=== PATIENT | female | born 1965 | race Native Hawaiian/Other Pacific Islander ===

== ENCOUNTER → 2021-02-01 08:36 | Outpatient (BNVA) | payer OTHER, SELFPAY | PROVIDERS: PCP Internal Medicine; Visit Provider Anesthesiology | DX: M79.609 Pain in unspecified limb (principal); G54.6 Phantom limb syndrome with pain; T87.89 Other complications of amputation stump; B19.20 Unspecified viral hepatitis C without hepatic coma; J44.9 Chronic obstructive pulmonary disease, unspecified; Z79.899 Other long term (current) drug therapy | CPT/HCPCS: 99202 ==

== ENCOUNTER → 2023-02-13 13:05 | Outpatient (BNVA) | payer OTHER, SELFPAY | PROVIDERS: PCP Internal Medicine; Visit Provider Physician Assistant | DX: G56.02 Carpal tunnel syndrome, left upper limb (principal); R29.6 Repeated falls; Z89.619 Acquired absence of unspecified leg above knee | CPT/HCPCS: 99212 ==

== ENCOUNTER 2023-04-08 14:36 | Outpatient (REF) | payer OTHER, SELFPAY ==
--- NOTE | ~2023-04-08 | XR_ITS ---
EXAMINATION: XR CERVICAL SPINE CLINICAL INFORMATION: Cervical radiculopathy. COMPARISON: None available. TECHNIQUE: Frontal and lateral (neutral, flexion and extension) views of the cervical spine were obtained. FINDINGS: Vertebral body heights are normal. There is significant reversal of the normal lordotic curvature. There is well-maintained alignment status-post C3-C4 anterior fusion and discectomy, with intact anterior fixator plate, fixator screws and disc spacers. No hardware failure or definite loosening is seen. The anterior fixator plate is not applied flush to the anterior margins of the C3 and C4 vertebral bodies; this could be compared with outside intraoperative imaging, if available. The C4-C5 disc space is well-maintained. More caudal disc spaces are poorly visualized. No acute fracture or spondylolisthesis is seen. There is no instability with flexion or extension. The posterior elements are intact. This multi-level cervical facet arthropathy. The dens is intact. No prevertebral soft tissue swelling or gas is seen. XR/XR cervical spine 4V IMPRESSION: 1. There is well-maintained alignment status-post C3-C4 anterior discectomy and fusion. No definite hardware failure or loosening is seen. 2. There is reversal of the normal lordotic curvature, which can be associated with muscle spasm. 3. No instability with flexion or extension. 4. There is multi-level cervical facet arthropathy.
== END 2023-04-08 14:37 | disposition home or self-care (01) ==
LOC: HO.HOSX 14:36
PROVIDERS: PCP Internal Medicine; Visit Provider Physician Assistant
DX: M54.12 Radiculopathy, cervical region (principal)
CPT/HCPCS: 72050; 99212

== ENCOUNTER 2023-07-16 17:48 | Outpatient (REF) | payer OTHER, SELFPAY ==
--- NOTE | ~2023-07-16 | MR_ITS ---
EXAMINATION: MR CERVICAL SPINE WITHOUT CONTRAST CLINICAL INFORMATION: Radiculopathy, severe bilateral arm pain COMPARISON: None TECHNIQUE: MRI of the cervical spine was obtained using routine sequences without contrast. Please note the patient was claustrophobic and terminated the examination prematurely prior to performing the axial GRE sequence FINDINGS: Motion degraded incomplete examination without axial GRE sequence obtained. Postsurgical changes following C3-C4 ACDF. Nondiagnostic assessment of the hardware would be better evaluated on CT. The craniocervical junction is intact. Reversal of the normal cervical lordosis. Slight anterolisthesis at C3-C4 and trace retrolisthesis at C5-C6 and C6-C7. Chronic T3, T4, and possibly T5 upper endplate compression fractures with minimal height loss. Cervical vertebral body heights are maintained. Diffuse disc desiccation with severe C5-C6 greater than C6-C7 disc height loss. Prominent type I Modic endplate changes at C5-C6 fluid signal intensity of the disc space. There are multilevel degenerative changes with level by level detail as follows: C2-C3: Bilateral facet arthrosis. No spinal canal or right neural foraminal stenosis. Minimal left neural foraminal narrowing. C3-C4: ACDF. Posterior disc uncovering, bilateral uncovertebral joint hypertrophy and advanced left greater than right facet arthrosis with ligamentum flavum thickening. No spinal canal stenosis. Severe bilateral neural foraminal stenosis. C4-C5: Disc osteophyte complex with bilateral uncovertebral joint hypertrophy and bilateral facet arthrosis, more pronounced and severe on the left. Mild spinal canal narrowing with encroachment upon the ventral cord. Severe left and small to moderate right neural foraminal stenosis. C5-C6: 3 mm rounded zoomed discal cyst along the right ventral margin of the disc space (image 5, series 4). Disc osteophyte complex with broad-based right paracentral disc protrusion, bilateral uncovertebral joint hypertrophy and advanced right greater than left facet arthrosis with ligamentum flavum thickening. Partially imaged marrow edema of the right facet joint. 3 mm synovial cyst along the anterior margin of the right facet joint projecting into the right neural foramen. Moderate spinal canal stenosis with cord impingement and ventral cord flattening. Severe bilateral neural foraminal stenosis. C6-C7: Disc osteophyte complex with bilateral uncovertebral joint hypertrophy and bilateral facet arthrosis with ligamentum flavum thickening. No spinal canal stenosis. Severe right and at least moderate left neural foraminal stenosis C7-T1: Small disc osteophyte complex with bilateral uncovertebral joint hypertrophy and bilateral facet arthrosis. No spinal canal stenosis. Moderate to severe right and mild left neural foraminal stenosis. Significant motion artifact precludes assessment for cord signal abnormality however definite cord signal abnormality is seen. No epidural fluid collection, mass, or hematoma. Asymmetric atrophy of the right scalene musculature, particularly of the right anterior scalene muscle. The right levator scapulae and probably also right trapezius muscles are likewise decreased in bulk compared to the contralateral left side. The flow voids of the major cervical vessels are maintained. Retropharyngeal course of the right internal carotid artery. The visualized intracranial structures are normal. Incompletely characterized apparent 1.4 cm opacity within the right upper lobe for which further evaluation with chest CT is advised. MR/MR cervical spine wo con IMPRESSION: Motion degraded incomplete examination without axial GRE sequence obtained. 1. Postsurgical changes following C3-C4 ACDF. Nondiagnostic assessment of the hardware would be better evaluated on CT. 2. Advanced multilevel cervical spondylosis as described, worst at C5-C6 where there is moderate spinal canal stenosis, cord impingement, and ventral cord flattening. Multilevel severe bilateral neural foraminal stenosis. Significant motion artifact precludes assessment for cord signal abnormality however definite cord signal abnormality is seen. 3. Asymmetric atrophy of the right scalene musculature, particularly of the right anterior scalene muscle. The right levator scapulae and probably also right trapezius muscles are likewise decreased in bulk compared to the contralateral left side. 4. Incompletely characterized apparent 1.4 cm opacity within the right upper lobe for which further evaluation with chest CT is advised. Findings to be called to the ordering clinician by a [facility] Screw Machine Operator [employer] Type.
== END 2023-07-16 17:49 | disposition home or self-care (01) ==
LOC: HO.MRI 17:48
PROVIDERS: PCP Internal Medicine; Visit Provider Physician Assistant
DX: M54.12 Radiculopathy, cervical region (principal)
CPT/HCPCS: 72141

== ENCOUNTER 2023-07-25 11:12 | Outpatient (AMB) | payer OTHER, SELFPAY ==
--- NOTE | 2023-07-25 11:30 | A.SPINEOV_ITS ---
Intake Intake Visit Reasons: discuss MRI results Intake Note: Ms. Hodge is here today to discuss the results of her MRI. Gis Geographer Required: No Allergies Iodinated Contrast Media [IV CONTRAST] Allergy (Severe, Verified 02/13/23 13:27) SWELLING shrimp [SHRIMP] Allergy (Severe, Verified 02/13/23 13:27) SWELLING metformin [METFORMIN] Allergy (Intermediate, Verified 02/13/23 13:27) ITCHING fentanyl Allergy (Unknown, Verified 02/13/23 13:27) unknown Assessment & Plan Assessment & Plan (1) Cervical radiculopathy: Comment: Brenda is a 57-year-old female comes in today as a follow-up patient after having her MRI completed. She has a previous surgical history of C3-C4 ACDF, and left sided carpal tunnel release. She reports that her upper extremity symptoms have continued to worsen, and sites paresthesias in her upper arm as well as her forearms bilaterally. She also endorses moderate to severe neck pain which has been ongoing for the last few months and is continue to worsen. She states that all of her fingers are not affected by the numbness/tingling, but continues to endorse pain that goes up and down her arms bilaterally. She states that she has had difficulty sleeping, and completing her ADLs. Mobility / function: Patient ambulates well, can rise from a seated position without difficulty. Sensation: Grossly intact. CN: II-XII grossly intact. Strength Testing Upper Extremities: - Deltoid 5/5 right 5/5 left - Biceps 5/5 right 5/5 left - Triceps 5/5 right 5/5 left - Wrist Ext 5/5 right 5/5 left - Wrist Flex 5/5 right 4/5 left - Hand home theater installer 5/5 right 4/5 left - Interossei 5/5 right 4/5 left Strength Testing Lower Extremities: - Hip flexion 5/5 right 5/5 left - Knee extension Patient has R side BTK amputation 5/5 left - Dorsiflexion Patient has R side BTK amputation 5/5 left - Plantar flex Patient has R side BTK amputation 5/5 left - EHL Patient has R side BTK amputation 5/5 left Reflexes: - Biceps Right - 2+ Left - 3+ - Triceps Right - 2+ Left - 3+ - Patellar Patient has R side BTK amputation Left - 3+ - Achilles Patient has R side BTK amputation Left - 3+ - Plantar Patient has R side BTK amputation Left - 3+ (+) L sided Valderrama?s sign On MRI review she is noted to have significant collapse of disc height below the level of her ACDF, predominantly affecting the disc space between C5-6. The report suggests severe stenosis however we can see CSF signal around the cord at this level so it is more likely moderate. There is also hyperintensity in the disk at C5-6 with possible cyst arising anteriorly. We compared this to MRI done one year ago and she has significantly collapsed this disk in the time frame, and has developed a worsening kyphotic deformity. We ordered repeat flexion / extension X-rays to better evaluate this issue, and noted a significantly radio-opaque area just below the C5 vertebrae and significant kyphotic deformity at C5-6 not seen on xrays in April 2023 at [facility]. This is concerning, as it seems too accelerated for a simple degenerative disk. We will order CT scan to further elucidate another etiology. She does have known history of osteomyelitis. Of note her MRI read states that she has an incompletely characterized apparent 1.4 cm opacity within the right upper lobe. She has know previous low dose CT scans with lower lobe nodules done at [facility] but none mention upper lobe mass, so we will forward our note to her pulmonology team that manages this. She was strongly advised to follow up with this with her outpatient provider that we observed has been tracking her with serial CT scans. This patient was evaluated with KVNG Jaquez who is in agreement with this plan. Case will be discussed with Dr. Lloyd. CT findings will be reviewed with Dr. Lloyd. Total amount of time spent in this visit was 60 minutes in discussion of symptoms, MRI cervical spine, XR cervical spine imaging results and subsequent plan of care. Peter Lloyd MD, PhD [facility] Code(s): M54.12 - Radiculopathy, cervical region Plan Moderate spinal canal stenosis, cord impingement, and ventral cord flattening. Orders: Orders XR cervical spine 4V Today M54.12 - Radiculopathy, cervical region Coding Level of Care Code Est Pt Level 5 (80733) Diagnoses Cervical radiculopathy M54.12
== END 2023-07-25 12:02 | disposition home or self-care (01) ==
PROVIDERS: PCP Internal Medicine; Visit Provider Physician Assistant
DX: M54.12 Radiculopathy, cervical region (principal)
CPT/HCPCS: 99215

== ENCOUNTER 2023-07-25 11:12 | Outpatient (REF) | payer OTHER, SELFPAY ==
--- NOTE | ~2023-07-25 | XR_ITS ---
EXAMINATION: XR CERVICAL SPINE CLINICAL INFORMATION: Radiculopathy cervical region COMPARISON: 07/16/2023 MR cervical spine. 04/08/2023 x-ray cervical spine. TECHNIQUE: 4 views of the cervical spine, inclusive of flexion and extension views. FINDINGS: Redemonstration of C3-C4 anterior fusion and discectomy with anterior fixator plate, screws and disc spacers. Hardware appears intact. As previously noted the anterior fixator plate is not quite flush to the anterior margins of the C3 and C4 vertebral body bodies. Multilevel cervical facet arthropathy. Reversal of the normal cervical lordosis. 3.5 mm anterolisthesis of C3 on C4. Trace retrolisthesis of C5 on C6 and C6-C7. Severe degenerative with loss of disc space height and hypertrophic change at C5-C6. [id number]-vbbdaa loss of disc space height at C6-C7. Moderate degenerative changes at C4-C5. Visualization of C6 and C7 limited due to overlying soft tissues. XR/XR cervical spine 4V IMPRESSION: 1. Status post ACDF at C3-C4. Hardware appears intact. 2. Mild 3.5 mm anterolisthesis of C3 on C4. 3. Advanced multilevel cervical spondylosis, most notable at C5-C6.
== END 2023-07-25 11:13 | disposition home or self-care (01) ==
LOC: HO.HOSX 11:12
PROVIDERS: PCP Internal Medicine; Visit Provider Physician Assistant
DX: M54.12 Radiculopathy, cervical region (principal); Z71.2 Person consulting for explanation of examination or test findings
CPT/HCPCS: 72050; 99212

== ENCOUNTER 2023-08-15 07:19 | Outpatient (REF) | payer OTHER, SELFPAY ==
--- NOTE | ~2023-08-15 | CT_ITS ---
EXAMINATION: CT CERVICAL SPINE WITHOUT CONTRAST CLINICAL INFORMATION: 57-year-old with radiculopathy, cervical region. COMPARISON: 07/16/2023 MRI TECHNIQUE: Volumetric CT imaging of the cervical spine was done with multiplanar reformatted reconstructions. This CT examination was performed using dose optimization techniques as appropriate, variously including the following: *Automated exposure control *Adjustment of mA and/or kV according to patient size (this includes techniques or standardized protocols for targeted exams where dose is matched to indication/reason for exam; i.e. extremities or head) *Use of iterative reconstruction technique DLP: 327 mGy-cm FINDINGS: Redemonstrated is 2.5 mm of anterolisthesis at C3-C4 similar to previous MRI, with lordotic reversal centered at C4-C5 unchanged in appearance. There is slight retrolisthesis at C5-C6. There is partially imaged cervicothoracic levocurvature, convex to the left in the upper thoracic spine which is incompletely imaged. Vertebral body heights are well-maintained. No acute fractures. HARDWARE: Anterior plate and screw fixation hardware noted at C3-C4, with no evidence for hardware fracture or loosening. Interbody spacer device in place at the C3-C4 level as well with centrally bridging bone noted at this level. Limited assessment of the included intracranial soft tissue structures demonstrates no acute process. C2-C3: No disc herniation or canal stenosis. No significant DJD or neural foraminal stenosis. C3-C4: Broad-based posterior disc osteophyte complex with mild unroofing of the posterior disc margin, with flattening of the ventral dural sac similar to the previous MRI. There is uncovertebral arthrosis bilaterally, with the uncovertebral joints and facet joints not yet fused with facet arthropathy, left more than right and mild central canal narrowing. There is severe left-sided and moderate right-sided neural foraminal stenosis. C4-C5: Soft tissues in the canal and neural foramina are partially obscured by metallic artifact. There is no bony canal stenosis. There is uncinate process spurring bilaterally and there is moderate left-sided facet arthropathy with hypertrophic changes and ankylosis of the left facet joint with [id number] right and moderate to severe left-sided neural foraminal stenosis. C5-C6: Severe disc space height loss at this level with partial ankylosis of the intervertebral disc space with degenerative endplate sclerosis. There is broad-based posterior disc osteophyte complex with encroachment on the ventral thecal sac asymmetric to the right. Soft tissues in the canal are partially obscured by artifact. There is bilateral facet arthropathy right more than left and uncovertebral arthrosis bilaterally with severe bilateral neural foraminal stenosis. C6-C7: Moderate to severe disc space height loss noted, with spondylosis, bilateral uncovertebral arthrosis, right more than left and moderate bilateral facet arthropathy similar to previous MRI. Soft tissues in the canal are partially obscured by artifact. Broad-based disc osteophyte complex noted with encroachment on the ventral dural sac without significant spinal canal stenosis. There is severe right-sided and moderate to severe left-sided neural foraminal stenosis. C7-T1: Soft tissues in the canal are partially obscured by artifact. No definite spinal canal stenosis and no large disc herniations or posterior disc osteophyte complexes. There is bilateral facet arthropathy, with moderate right-sided and mild left-sided foraminal stenosis. T1-T2: No bony canal or neural foraminal stenosis. Minor facet arthrosis noted bilaterally. The visualized lung apices demonstrate probable fibrotic changes bilaterally, right more than left and a small calcification left lung apex. The visualized extraspinal soft tissue structures are not well evaluated due to streak artifact and positional factors. CT/CT cervical spine wo IV con IMPRESSION: 1. Status post anterior instrumented fusion at C3-C4 with partial ankylosis of the intervertebral disc space at this level, with no evidence for hardware fracture or loosening. Centrally fused bridging bone is noted at this level. 2. Mild anterolisthesis at C3-C4 and slight retrolisthesis at C5-C6 with a partially imaged cervicothoracic levocurvature. 3. Multilevel discogenic degenerative change, spondylosis and DJD as described above, with partial ankylosis of the C5-C6 intervertebral disc space. Overall similar appearance to previous MRI. 4. Multilevel bilateral DJD, with multilevel bilateral bony neural foraminal stenosis, most apparent on the left at C3-C4 and on the left at C4-C5 and bilaterally at C5-C6 and on the right at C6-C7. 5. Probable fibrotic changes at both lung apices but difficult to exclude neoplastic disease at the right lung apex. Recommend CT of the chest with contrast for further assessment.
== END 2023-08-15 07:20 | disposition home or self-care (01) ==
LOC: HO.CT 07:19
PROVIDERS: PCP Internal Medicine; Visit Provider Physician Assistant
DX: M54.12 Radiculopathy, cervical region (principal)
CPT/HCPCS: 72125

== ENCOUNTER 2023-09-01 13:23 | Outpatient (AMB) | payer OTHER, SELFPAY ==
--- NOTE | 2023-09-01 13:31 | MHC.OFFVIS ---
Intake Vital Signs 09/01/23 13:48 Height 5 ft Weight 117 lb BMI 22.8 BP 147/93 H Blood Pressure Location Lt brachial Position Sitting Pulse 116 H Pulse Source Pulse Oximeter Temp 98.7 F Temp Source Oral Pulse Oximetry (%) 95 Intake Visit Reasons: Ref.Wiley Slaterron,Chronic Osteomyelitis Allergies Iodinated Contrast Media [IV CONTRAST] Allergy (Severe, Verified 09/01/23 13:48) SWELLING shrimp [SHRIMP] Allergy (Severe, Verified 09/01/23 13:48) SWELLING metformin [METFORMIN] Allergy (Intermediate, Verified 09/01/23 13:48) ITCHING fentanyl Allergy (Unknown, Verified 09/01/23 13:48) unknown HPI Ref.Wiley Slaterron,Chronic Osteomyelitis HPI Details She was referred due to abnormal MRI ?infection She has cervical disk disease and is seeing Neurosurgery. There is reported more collapse in disk below level of disk disease in MRI than would be expected in a year according to patient. She has had C3/C4 cord compression and has had surgery done [facility] [place] 10/2021 due to C3-C4 myelopathy according to patient. I did review both [facility] and [facility] EMRs. There is no blood culture positive except for diptheroids reported at [facility] 10/22,contaminant single. There is no surgical biopsy or culture reporting organisms that I can find. She reports no fever,bacteremia or sepsis from any cervical source. She says she feels same she usually does with no leg or arm weakness changes. [facility] Medical History COPD, severe Painful amputation stump Phantom limb pain Post-traumatic stress disorder, unspecified Anxiety disorder, unspecified H/O tuberculosis Low back pain Bipolar disorder, unspecified Chronic rhinitis Vitamin D deficiency, unspecified Chronic obstructive pulmonary disease, unspecified Prediabetes Asymptomatic cholelithiasis Other specified abnormal findings of blood chemistry Acquired absence of right leg below knee Pulmonary nodules Tobacco use disorder, mild, abuse Hepatitis C Review of Systems Const All systems reviewed & are unremarkable except as noted in HPI and below Physical Exam Vital Signs: Last Vital Signs Temp 98.7 F 09/01/23 13:48 Pulse 116 H 09/01/23 13:48 BP 147/93 H 09/01/23 13:48 Pulse Ox 95 09/01/23 13:48 BMI result Body Mass Index 22.8 Const General: cooperative Orientation/consciousness: patient oriented x3 HEENT Head: Yes normal to inspection Mouth: Normal oral and palatal mucosa present Eyes General: appearance normal, both eyes and all related structures Pupils: Equal, round and reactive pupils present Resp Effort & Inspection: normal respiratory effort Cardio Rate: regular rate Rhythm: regular rhythm GI Palpation (GI): Soft to palpation and nontender General: Yes no CVA tenderness Back/Spine/Pelvis Back: no CVA tenderness Skin General skin exam: no rashes or lesions noted Neuro General: patient oriented x3 Cranial nerves: Yes CN's II-XII intact bilaterally and Yes Equal, round and reactive pupils present Extrem Other: missing RLE chronic neck stiffness Psych Appearance: grossly normal Assessment & Plan Assessment & Plan (1) Cervical radiculopathy: Comment: Brenda is a 57-year-old female comes in today as a follow-up patient after having her MRI completed. She has a previous surgical history of C3-C4 ACDF, and left sided carpal tunnel release. She reports that her upper extremity symptoms have continued to worsen, and sites paresthesias in her upper arm as well as her forearms bilaterally. She also endorses moderate to severe neck pain which has been ongoing for the last few months and is continue to worsen. She states that all of her fingers are not affected by the numbness/tingling, but continues to endorse pain that goes up and down her arms bilaterally. She states that she has had difficulty sleeping, and completing her ADLs. Mobility / function: Patient ambulates well, can rise from a seated position without difficulty. Sensation: Grossly intact. CN: II-XII grossly intact. Strength Testing Upper Extremities: - Deltoid 5/5 right 5/5 left - Biceps 5/5 right 5/5 left - Triceps 5/5 right 5/5 left - Wrist Ext 5/5 right 5/5 left - Wrist Flex 5/5 right 4/5 left - Hand scarrer 5/5 right 4/5 left - Interossei 5/5 right 4/5 left Strength Testing Lower Extremities: - Hip flexion 5/5 right 5/5 left - Knee extension Patient has R side BTK amputation 5/5 left - Dorsiflexion Patient has R side BTK amputation 5/5 left - Plantar flex Patient has R side BTK amputation 5/5 left - EHL Patient has R side BTK amputation 5/5 left Reflexes: - Biceps Right - 2+ Left - 3+ - Triceps Right - 2+ Left - 3+ - Patellar Patient has R side BTK amputation Left - 3+ - Achilles Patient has R side BTK amputation Left - 3+ - Plantar Patient has R side BTK amputation Left - 3+ (+) L sided Valderrama?s sign On MRI review she is noted to have significant collapse of disc height below the level of her ACDF, predominantly affecting the disc space between C5-6. The report suggests severe stenosis however we can see CSF signal around the cord at this level so it is more likely moderate. There is also hyperintensity in the disk at C5-6 with possible cyst arising anteriorly. We compared this to MRI done one year ago and she has significantly collapsed this disk in the time frame, and has developed a worsening kyphotic deformity. We ordered repeat flexion / extension X-rays to better evaluate this issue, and noted a significantly radio-opaque area just below the C5 vertebrae and significant kyphotic deformity at C5-6 not seen on xrays in April 2023 at [place]. This is concerning, as it seems too accelerated for a simple degenerative disk. We will order CT scan to further elucidate another etiology. She does have known history of osteomyelitis. Of note her MRI read states that she has an incompletely characterized apparent 1.4 cm opacity within the right upper lobe. She has know previous low dose CT scans with lower lobe nodules done at [facility] but none mention upper lobe mass, so we will forward our note to her pulmonology team that manages this. She was strongly advised to follow up with this with her outpatient provider that we observed has been tracking her with serial CT scans. This patient was evaluated with KVNG Jaquez who is in agreement with this plan. Case will be discussed with Dr. Lloyd. CT findings will be reviewed with Dr. Lloyd. Total amount of time spent in this visit was 60 minutes in discussion of symptoms, MRI cervical spine, XR cervical spine imaging results and subsequent plan of care. Peter Lloyd MD, PhD [facility] Code(s): M54.12 - Radiculopathy, cervical region Plan She has neck pain chronically with no changes. I also do not see any fever or leukocytosis or chronic elevated ESR. I dont see any evidence of prior acute osteomyelitis so cant revenue director chronic osteomyelitis There is h/o TB reported although patient doesnt know much about it ? Grove disease. Maybe this is just disks deteriorating due to mechanical reasons quickly. Would not treat any infection if any until know more about what kind ?staph ?TB Biopsy and culture area C spine if desired and will treat accordingly. Alternatively, follow and wait and recheck for symptoms. No appointment made but will see after any definitive testing done. Coding Level of Care Code New Pt Level 3 (75651) Diagnoses Cervical radiculopathy M54.12
[2023-09-01 13:48] VITALS: BP 147/93; PULSE 116; TEMP 37.1; O2SAT 95; BMI 22.8
== END 2023-09-01 14:23 | disposition home or self-care (01) ==
PROVIDERS: PCP Internal Medicine; Visit Provider Internal Medicine
DX: M54.12 Radiculopathy, cervical region (principal)
CPT/HCPCS: 99203

== ENCOUNTER → 2023-09-01 13:23 | Outpatient (BNVA) | payer OTHER, SELFPAY | PROVIDERS: PCP Internal Medicine; Visit Provider Internal Medicine | DX: M54.12 Radiculopathy, cervical region (principal) | CPT/HCPCS: 99202 ==

== ENCOUNTER 2023-11-27 10:28 | Outpatient (REF) | payer OTHER, SELFPAY ==
--- NOTE | ~2023-11-27 | MR_ITS ---
MR CERVICAL SPINE WITHOUT IV CONTRAST CLINICAL INFORMATION: Cervical region radiculopathy. COMPARISON: Cervical spine MRI 07/16/2023. Cervical spine CT 08/15/2023. TECHNIQUE: MRI of the cervical spine was obtained using routine sequences without contrast. FINDINGS: Redemonstrated postoperative changes following ACDF at C3-C4. The surgical hardware is not diagnostically assessed on MRI. There is stable anterior subluxation of C3 on C4 and there is stable retrosubluxation of C5 on C6 and C6 on C7. Similar severe disc volume loss at C5-C6 and C6-C7. There is bone marrow edema within the left C3-C4 facets that is most likely degenerative/inflammatory. No additional bone marrow edema. No acute fractures craniocervical junction is unremarkable. Cervical arterial flow voids are maintained. There are no significant extraspinal soft tissue findings. Nondiagnostic assessment for cord signal changes due to the degree of artifact. C2-C3: Disc contour is normal. Left-sided facet arthropathy. No central canal stenosis and no foraminal stenosis. C3-C4: ACDF changes. Anterior subluxation. Disc osteophyte and ligamentum flavum thickening mildly narrow the central canal. Advanced uncovertebral joint spurring and facet arthropathy result in stable appearing severe bilateral foraminal stenosis. Findings unchanged. C4-C5: Disc osteophyte and ligamentum flavum thickening result in worsening moderate central canal stenosis on the left side and flattening of the left cord. Uncovertebral joint spurring and facet arthropathy result in similar severe left-sided foraminal stenosis. C5-C6: Retrosubluxation. Disc osteophyte and ligamentum flavum thickening result in worsening moderate central canal stenosis and flattening of the cord. Uncovertebral joint spurring and facet arthropathy result in similar severe bilateral foraminal stenosis. C6-C7: Disc osteophyte and ligamentum flavum thickening mildly narrow the central canal. Uncovertebral joint spurring and facet arthropathy result in stable appearing severe right and moderate left foraminal stenosis. C7-T1: Disc osteophyte and ligamentum flavum thickening mildly narrow the central canal. There is mild foraminal encroachment bilaterally. MR/MR cervical spine wo con IMPRESSION: - At C3-C4, there are redemonstrated postoperative changes following ACDF. Stable anterior subluxation of C3 on C4 and advanced spondylitic changes result in persistent severe bilateral foraminal stenosis at this level. - At C4-C5, progressive spondylitic changes result in worsening moderate central canal stenosis on the left side and flattening of the left cord. Similar severe left-sided foraminal stenosis at this level. - At C5-C6, progressive spondylitic changes result in worsening moderate central canal stenosis and flattening of the cord. Similar severe bilateral foraminal stenosis at this level. - At C6-C7, multifactorial degenerative changes result in stable appearing severe right and moderate left foraminal stenosis. - There is bone marrow edema within the left C3-C4 facets that is most likely degenerative/inflammatory. - Nondiagnostic assessment for cord signal changes due to the degree of artifact. - Right scalene muscular atrophy again noted.
== END 2023-11-27 10:29 | disposition home or self-care (01) ==
LOC: HO.MRI 10:28
PROVIDERS: PCP Internal Medicine; Visit Provider Physician Assistant
DX: M54.12 Radiculopathy, cervical region (principal)
CPT/HCPCS: 72141

== ENCOUNTER 2025-06-06 11:26 | Outpatient (REF) | payer OTHER, SELFPAY ==
--- NOTE | 2025-06-06 | EMG_ITS ---
Please see the attached neurophysiology report MTDD
--- OUTSIDE RECORDS SUMMARY | 2025-06-06 12:20 | XMS_ITS | Encounter Summary ---
Author Organization [facility] Address [address] [place] [address] Care Team Providers Care Installers Mechanical Name Role Phone Leilani Donovan MD Primary Care Prov ider Reason for Visit * Reason Onset Date Comments Fitting for DME 05/02/2025 Encounter Details Date Type Department Care Team (Late st Contact Info) Description 05/02/2025 Telephone Adult Medicine - [place] [address] [place] [phone] Leilani Donovan MD [address] [place] [address] Fitting for DME Social History Tobacco Use Types Packs/Day Years Used Date Smoking Tobacco: Every Day Cigarettes Started: 11/03/1975 Smokeless Tobacco: Never Alcohol Use Standard Drinks/Week Comments No 0 (1 standard drink = 0.6 oz pur e alcohol) Interpersonal Safety Answer Date Record ed Physical Abuse 02/22/2025 Verbal Abuse 02/22/2025 Comments No Sex and Gender Information Value Date Recorded Sex Assigned at Female 01/21/2025 3:25 PM EDT Legal Sex Female 5:29 PM EST Gender Identity Female 01/21/2025 3:25 PM EDT Sexual Orientation Straight 01/21/2025 3: 25 PM EDT documented as of this encounter Progress Notes * Linda Ducati - 06/03/2025 3:22 PM EDT New order needs to be pended for a new scooter not repairs * Linda Pino - 06/03/2025 3:20 PM EDT Called patient and she does want a new scooter and not her current one to be repaired. * Linda Pino - 06/03/2025 3:03 PM EDT Faxed over to [facility] the signed order and the ov notes. Called [facility] to see if they received the fax. I spoke to Xin and she indicated that the patient called into their office today indicating that shedoes not want repairs to the scooter she wants a new one since it is over 5 years old. Per the insurance she is eligible for the new scooter. Since our order is for repairs the provider will need to do a new order for a new scooter. Will call the patient to explain what will need to be done. * Stephon Mercedes - 06/03/2025 12:30 PM EDT Pt calling to find out if someone can print out the script so she can bring it right over to [employer] [facility] [employer]. Pls advise. Pt call can be returned to [phone]. Thx. * Je Cordova - 06/02/2025 1:42 PM EDT PT CALLING ON THIS, PLS ADVISE * Hanane Westleysaqib - 05/23/2025 11:38 AM EDT Please refax - fax [phone] * Alexa Metz MA - 05/11/2025 12:24 PM EDT This message indicates that [facility] only received 2 pieces of paper, but on my end all the pages are listed on the confirmation. Refaxed to [employer] @ [phone] I called the pt and informed her that on my end, everything was received according to the confirmation, but I refaxed it. * Stephon Mercedes - 05/10/2025 3:38 PM EDT Pt calling again on status of this. Pls return call to [phone] once finished. Thx. * Je Cordova - 05/05/2025 2:41 PM EDT Patient calling back, states [employer] only got 2 pieces of paper. Patient would like Alexa to call her back when able too. Please advise * Alexa Metz MA - 05/03/2025 10:29 AM EDT This was done in another message. The form for scooter labor was faxed on 04/18/2025 with Tita's notes supporting the medical necessity. Re Faxed to [employer] T. [phone] F. [phone] * Hanane Woodruff - 05/02/2025 10:33 AM EDT DME REQUEST Name of Product: dme request Specific information about product scootet # Needed 1 Reason patient is asking for this supply? Unknown to bsr Have you received this supply before? If yes , when?: Yes. Have you discussed the need for this supply with a provider at a recent visit? If yes, with who andwhen? Yes. When completed: fax to [employer] Have you told the patient it will take 7-10 days for completion of this request? No request documented in this encounter Plan of Treatment Upcoming Encounters Date Type Department Care Team (Late st Contact Info) Description 06/17/2025 4:30 PM EDT Appointment [facility] CT Scan [address] [place] [phone] 07/15/2025 3:30 PM EDT Office Visit Adult Medicine [facility] [address] [place] [phone] Leilani Donovan MD [address] [place] [address] 08/19/2025 11:00 AM EDT Office Visit Adult Medicine [facility] [address] [place] [phone] Leilani Donovan MD [address] [place] [address] 08/26/2025 11:50 AM EDT Office Visit Pulmonolgy - [place] [address] [phone] Steffi Souza NP [address] [address] documented as of this encounter Visit Diagnoses Not on filedocumented in this encounter Care Teams Installers Mechanical Relationship Specialty Start Date End Date Leilani Donovan MD [address] [place] [address] PCP - General Internal Medicine 10/21/19 documented as of this encounter
== END 2025-06-06 11:27 | disposition home or self-care (01) ==
LOC: HO.NEURO 11:26
PROVIDERS: PCP Internal Medicine; Visit Provider Psychiatry & Neurology Neurology
DX: G56.11 Other lesions of median nerve, right upper limb (principal); G95.9 Disease of spinal cord, unspecified
CPT/HCPCS: 95886; 95913

== ENCOUNTER 2025-06-06 11:45 | Outpatient (REF) | payer OTHER, SELFPAY ==
--- OUTSIDE RECORDS SUMMARY | 2003-11-02 20:00 | XMS_ITS | Continuity of Care Document ---
Author Name [facility] Address [address] [place] [address] Organization [facility] Care Team Providers Care Sedimentationist Name Role Phone [facility] Unavailable Unavailable Problems Problem Status Onset Date Problem Type Date of Resolution Comments Source Asthma (disorder) Active Condition Ad ded by discern rule CLIN_UH_PROB_A STHMA from a nursing choronic problems assessment Powerform. Chronic obstructive lung disease (disorder) Active Condition Added by discern rule CLIN_UH_PROB_C OPD from a nursing choronic problems assessment Powerform. Depressive disorder (disorder) Active Condition Added by discern rule CLIN_UH_PROB_D EPR from a nursing choronic problems assessment Powerform. Disease of thyroid gland (disorder) Active Condition Generalized osteoarthritis (disorder) Active Condition Added by discern rule CLIN_UH_PROB_A RTHRITIS from a nursing choronic problems assessment [employer]form. Hypertensive disorder, systemic arterial (disorder) Active Condition Added by discern rule CLIN_UH_PROB_H YPERTENSION from a nursing choronic problems assessment [employer]form. Migraine (disorder) Active Condition Added by discern rule CLIN_UH_PROB_M IGRAINES from a nursing choronic problems assessment Powerform. 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) Active Condition Chronic osteomyelitis (disorder) Active Condition On examination - Amputated right below knee (context-dependent category) Active Condition Allergies, Adverse Reactions, Alerts Substance Category Reaction Severity Reaction type Status Date Reported Comments Source iodinated radiocontrast dyes Assertion anaphyla xis Severe Drug allergy Active [facility] Shrimp Assertion anaphyla xis Severe Allergy to substance Active [facility] metFORMIN Assertion Hives Drug allergy Active [facility] Encounters Location Location Details Encounter Type Encounter Number Reason For Visit Attending Provider ADM Date DC Date Status Source MOO MOO HEMA OUTPATIENT [id number] F/U RIGHT ANKLE Renny Iggy Cancel [facility] TECHBILL [id number] 03/29 [facility] 04/01 1 Edmundo Cali[facility] PARUL PARUL OUTPATIENT [id number] f/u from hospital pt had amputation in Denise Dan Arnav [facility] PMR PMR OUTPATIENT [id number] [facility] fu///jjosé Laura Cancel [facility] PMR PMR OUTPATIENT [id number] [place] [facility] fu amp///jk Sen Laura C[facility] OTR OTR OUTPATIENT [id number] 3 MONTH F/U RT BKT Jermaine Yue Musacel [id number] PMR PMR OUTPATIENT [id number] EVAL NEW SOCKET//LA H Sen Laura [facility] OTR OTR OUTPATIENT [id number] 3 MONTH F/U RT BKT Jermaine Yue Cancel [id number] [id number] PMR PMR OUTPATIENT [id number] 3 month fu///sg Sen Laura [facility] PMR PMR OUTPATIENT [id number] 2 month fu//sg Sen José [facility] PMR PMR OUTPATIENT [id number] 2 month fu//sg Jose Cruz [facility] PMR PMR OUTPATIENT [id number] 2 month fu//sg -REQ EARLIER DUE TO PAIN Sen Laura [facility] PMR PMR OUTPATIENT [id number] 2 month fu//sg Jose Cruz [facility] PMR PMR OUTPATIENT [id number] 3 month fu--ampute e//sg Jose Cruz [facility] PMR PMR OUTPATIENT [id number] 3 month fu--ampute e//sg Jose Cruz [facility] PMR OUTPATIENT [id number] FOLLOW UP Sen José [facility]
== END 2025-06-06 11:46 | disposition home or self-care (01) ==
LOC: HO.NEURO 11:45
PROVIDERS: Visit Provider Psychiatry & Neurology Neurology
DX: Z13.89 Encounter for screening for other disorder (principal)

== ENCOUNTER → 2025-06-06 11:53 | Outpatient (BNV) | payer OTHER, SELFPAY | PROVIDERS: PCP Internal Medicine; Visit Provider Psychiatry & Neurology Neurology | DX: G56.01 Carpal tunnel syndrome, right upper limb (principal) | CPT/HCPCS: 95886; 95913 ==